=== PATIENT | male | born 1955 | race Caucasian/White ===

== ENCOUNTER → 2019-09-21 | Day surgery (SDC) | payer BC ==
[~2019-09-21] MED LIST: Ketamine 200 MG/20 ML MDV IV ONE; Lactated Ringers 1,000 ML IV SCH; Phenylephrine 1% 10 MG/ML SDV IV ONE; Propofol 200 MG/20 ML SDV IV ONE; fentaNYL 100 MCG/2 ML SDV IV ONE
[2019-09-21 08:38] VITALS: BP 116/77; PULSE 97
--- NOTE | 2019-09-21 09:41 | OR ---
DATE OF OPERATION: 09/21/2019 PREOPERATIVE DIAGNOSIS: POSITIVE COLOGUARD. POSTOPERATIVE DIAGNOSIS: POSITIVE COLOGUARD. SURGEON: Cuate Travis MD PROCEDURE: DIAGNOSTIC COLONOSCOPY WITH FORCEPS POLYP REMOVAL X5. ANESTHESIA: MAC. COMPLICATIONS: None. SPECIMEN: Five separate polyps. See report. All less than 0.5 cm. FINDINGS: 1. Full-length colonoscopy. 2. Mild distal sigmoid and rectosigmoid diverticulosis. 3. Five small sessile polyps. RECOMMENDATIONS: Followup colonoscopy in 2 years. INDICATIONS: The patient had in the past declined routine colon screening, so agreed to a Cologuard which was positive, and he was sent for a diagnostic scope. DESCRIPTION OF PROCEDURE: The patient was prepped and draped, placed in the left lateral decubitus position. A lubricated Olympus colonoscope was inserted and easily advanced to the cecum. Direct visualization of ileocecal valve and appendiceal orifice was accomplished. The bowel prep was excellent. Upon withdrawal of the scope, right in the cecal pouch, the patient had a small sessile polyp about 3 mm, removed in its entirety with a forceps biopsy. The rest of the cecum and ascending colon appeared benign. No lesions in the transverse colon. On the descending colon side of the splenic flexure, the patient had a second, slightly larger, maybe 3 or 4 mm sessile polyp removed with 3 forceps biopsies in its entirety. Approximately half way down the descending colon, the patient had a third small sessile polyp also removed with a forceps in its entirety with biopsies x2. For the most part, the sigmoid colon appeared unremarkable other than some very mild diverticular disease at its most distal portion and in the rectosigmoid junction. The proximal rectal vault in the mid rectum had 2, small, what appeared to be hyperplastic polyps, both flat and 2 to 3 mm. Each removed in their entirety with a forceps biopsy x1. Retroflexion of scope showed no perianal lesions. Air was suctioned. Scope removed without complication. FELY/RAY /[id number]
== END ==
LOC: CC.SDS 06:48
PROVIDERS: ATTEND Family Medicine
DX: D12.0 Benign neoplasm of cecum (principal); K62.1 Rectal polyp; K57.30 Diverticulosis of large intestine without perforation or abscess without bleeding; E78.5 Hyperlipidemia, unspecified; I10 Essential (primary) hypertension; F17.210 Nicotine dependence, cigarettes, uncomplicated; Z88.7 Allergy status to serum and vaccine; Z79.899 Other long term (current) drug therapy
CPT/HCPCS: 00811; 45380; J2370; J2704; J3010; J7120

== ENCOUNTER → 2022-09-24 | Day surgery (SDC) | payer MEDICARE, BC ==
[~2022-09-24] MED LIST changes: -Ketamine 200 MG/20 ML MDV IV ONE; +Ketamine 200 MG/20 ML MDV ONE; +Midazolam 1 MG/ML 2 ML SDV ONE; -Phenylephrine 1% 10 MG/ML SDV IV ONE; +Phenylephrine 1% 10 MG/ML SDV ONE; -Propofol 200 MG/20 ML SDV IV ONE; +Propofol 200 MG/20 ML SDV ONE; -fentaNYL 100 MCG/2 ML SDV IV ONE; +fentaNYL 50 MCG/ML SDV ONE
[2022-09-24 10:48] VITALS: BP 94/65; PULSE 76
== END ==
LOC: CC.SDS 08:57
PROVIDERS: ATTEND Family Medicine
DX: Z12.11 Encounter for screening for malignant neoplasm of colon (principal); D12.3 Benign neoplasm of transverse colon; D12.4 Benign neoplasm of descending colon; K57.30 Diverticulosis of large intestine without perforation or abscess without bleeding; E78.5 Hyperlipidemia, unspecified; I10 Essential (primary) hypertension; R79.89 Other specified abnormal findings of blood chemistry; R91.1 Solitary pulmonary nodule; F17.210 Nicotine dependence, cigarettes, uncomplicated; N40.1 Benign prostatic hyperplasia with lower urinary tract symptoms; N13.8 Other obstructive and reflux uropathy; Z88.7 Allergy status to serum and vaccine; Z79.899 Other long term (current) drug therapy
CPT/HCPCS: 00811; 45385; 88305; J2250; J2370; J2704; J3010; J3490; J7120